=== PATIENT | male | born 1975 | race Two or more races ===

== ENCOUNTER 2020-03-12 12:58 | Outpatient (CLI) | payer OTHER | END 2020-03-12 13:40 | disposition home or self-care (01) | LOC: OFIC 805 12:58 | PROVIDERS: ATTEND Otolaryngology | DX: H60.8X2 Other otitis externa, left ear (principal); H90.42 Sensorineural hearing loss, unilateral, left ear, with unrestricted hearing on the contralateral side; H61.22 Impacted cerumen, left ear ==

== ENCOUNTER 2020-03-12 14:50 | Outpatient (CLI) | payer OTHER | END 2020-03-12 15:00 | disposition home or self-care (01) | LOC: LAB 14:50 | PROVIDERS: ATTEND Otolaryngology | DX: B36.8 Other specified superficial mycoses (principal) ==

== ENCOUNTER → 2020-03-24 | Outpatient (CLI) | payer OTHER | END | disposition home or self-care (01) | LOC: OFIC 805 08:47 | PROVIDERS: ATTEND Otolaryngology | DX: H60.8X2 Other otitis externa, left ear (principal); H90.42 Sensorineural hearing loss, unilateral, left ear, with unrestricted hearing on the contralateral side; H61.22 Impacted cerumen, left ear ==

== ENCOUNTER 2020-04-21 09:28 | Outpatient (CLI) | payer OTHER | END 2020-04-21 10:00 | disposition home or self-care (01) | LOC: OFIC 805 09:28 | PROVIDERS: ATTEND Otolaryngology | DX: H91.8X2 Other specified hearing loss, left ear (principal); H60.8X2 Other otitis externa, left ear ==

== ENCOUNTER 2020-07-15 09:44 | Outpatient (CLI) | payer OTHER | END 2020-07-15 10:47 | disposition home or self-care (01) | LOC: OFIC 805 09:44 | PROVIDERS: ATTEND Otolaryngology | DX: H60.8X2 Other otitis externa, left ear (principal) ==